=== PATIENT | female | born 1985 ===

== ENCOUNTER 2021-04-10 05:45 | Day surgery (SDC) | payer OTHER ==
[2021-04-10] MEDS ORDERED: NAPR500T14 PO (10:55)
[2021-04-10] MEDS ORDERED: Tylenol #3 PO (10:55)
[2021-04-10] MEDS ORDERED: MORGIDOX100 MG PO (14:18)
== END 2021-04-10 13:00 | disposition home or self-care (01) ==
LOC: CIR.AMB 05:45
PROVIDERS: ATTEND Obstetrics & Gynecology
DX: D25.0 Submucous leiomyoma of uterus (principal); Z30.2 Encounter for sterilization; N84.0 Polyp of corpus uteri; Z20.822 Contact with and (suspected) exposure to COVID-19